=== PATIENT | female | born 1995 | race American Indian/Alaskan Native ===

== ENCOUNTER 2022-02-19 20:38 | Inpatient (IN) | payer OTHER ==
[2022-02-19] MEDS ORDERED: LIDOCAINE (2%) 20 MG/1 ML VIAL 20 ML MDV INFILTRATI ONE (22:25)
[2022-02-19] MEDS ORDERED: BUTORPHANOL 2 MG/1 ML INJ IV PRN (22:25)
[2022-02-19] MEDS ORDERED: PROMETHAZINE 25 MG TAB PO PRN (22:25)
[2022-02-19] MEDS ORDERED: TERBUTALINE 1 MG/1 ML INJ SUB-Q PRN (22:25)
[2022-02-19] MEDS ORDERED: ACETAMINOPHEN 325 MG TAB PO PRN (22:25)
[2022-02-19] MEDS ORDERED: ePHEDrine SULFATE 50 MG/1 ML INJ IV PRN (22:25)
[2022-02-19] MEDS ORDERED: fentaNYL 100 MCG/2 ML INJ IV PRN (22:25)
[2022-02-19] MEDS ORDERED: MINERAL OIL 30 ML ORAL LIQD PO PRN (22:25)
[2022-02-19] MEDS ORDERED: LACTATED RINGERS 1,000 ML IV SCH (22:30)
[2022-02-19 23:15] LABS: Hematocrit 35.1 % (30.3-42.9); Hemoglobin 12.1 gm/dl (10.1-14.3); Mean Corpuscular HGB Conc 35 % (30-34); Mean Corpuscular Volume 89 fl (79-97); Platelet Count 104 K/mm3 (140-440); Red Blood Count 3.96 M/mm3 (3.65-5.03); Red Cell Distribution Width 14.9 % (13.2-15.2)
--- NOTE | 2022-02-19 23:56 | History and Physical Report ---
History of Present Illness Date of examination: 02/19/22 Date of admission: 02/19/22 20:38 History of present illness: This patient is being admitted for induction for intrauterine growth restri ction. EDC Confirmation: 02/25/2022 by ultrasound Past History : 3 Term Births: 2 Premature Births: 0 Living Children: 2 Para: 2 Mult. Births: 0 Prev : 0 Aborta: 0 Elect. Ab: 0 Spont. Ab: 0 Ectopics: 0 # 1 Weeks Gestation: 37 Delivery type: Infant Sex: Female # 2 Weeks Gestation: 40 Delivery type: Infant Sex: Male Past Medical History: Negative Past Medical History Past Surgical History: D&C: Risk Factors: Smoked Tobacco Use: Never smoker Smokeless Tobacco Use: Never Passive Smoke Exposure: no HIV High Risk Behavior: no Exercise: no Seatbelt Use: 100 % Past Medical History Surgery (Non-roofing superintendent): positive D&C: Abnormal PAP: negative YOVANNY Exposure: negative Infertility: negative Uterine Anomaly: negative Uterine Surgery (not C/S): negative Other Gynecologic Problems: negative Social Hx: Patient is single Smoking History: Patient has never smoked. +MJ Infection History HIV Risk Eval: no Varicella/Chicken Pox Status: NO Genetic History Congenital Heart Defect: Mom: no Dad: no Soledad Disease: Mom: no Dad: no Thalassemia Mom: no Dad: no Neural Tube Defect Mom: no Dad: no Down's Syndrome Mom: no Dad: no Willem-Sachs Mom: no Dad: no Sickle Cell Disease/Trait Mom: no Dad: no Hemophilia Mom: no Dad: no Muscular Dystrophy Mom: no Dad: no Cystic Fibrosis Mom: no Dad: no Louisa Chorea Mom: no Dad: no Mental Retardation Mom: no Dad: no Fragile X Mom: no Dad: no Other Genetic/Chromosomal Disorder Mom: no Dad: no Child w/other defect Mom: no Dad: no Enviromental Exposures Xray Exposure: no Medication, drug, or alcohol use since LMP: no Chemical/Other Exposure: no Exposure to Cat Liter: no Hx of Parvovirus (Fifth Disease): no Occupational Exposure to Children: none Current Allergies (reviewed today): No known allergies Past History Past Medical History: other (See HPI) Past Surgical History: D&C, other (See HPI) DENTAL RECEPTIONIST History: other (See HPI) Family/Genetic History: other (See HPI) Social history: full code, other (See HPI) - Obstetrical History Expected Date of Delivery: 02/25/22 Actual Gestation: 39 Week(s) 2 Day(s) : 3 Para: 2 Hx # Term Pregnancies: 2 Number of Pregnancies: 0 Spontaneous Abortions: 0 Induced : 0 Number of Living Children: 2 Medications and Allergies Allergies Allergy/AdvReac Type Severity Reaction Status Date / Time No Known Allergies Allergy Verified 02/19/22 22:30 Active Meds: Active Medications Acetaminophen (Acetaminophen 325 Mg Tab) 650 mg PO Q4H PRN PRN Reason: Pain, Mild (1-3) Butorphanol Tartrate (Butorphanol 2 Mg/1 Ml Inj) 1 mg IV Q2H PRN PRN Reason: Pain, Moderate (4-6) Ephedrine Sulfate (Ephedrine Sulfate 50 Mg/1 Ml Inj) 10 mg IV Q2M PRN PRN Reason: Hypotension Fentanyl (Fentanyl 100 Mcg/2 Ml Inj) 100 mcg IV Q2H PRN PRN Reason: Pain , Severe (7-10) Lactated Ringer's (Lactated Ringers) 1,000 mls @ 125 mls/hr IV DIRECT JAYESH Mineral Oil (Mineral Oil 30 Ml Oral Liqd) 30 ml PO QHS PRN PRN Reason: Constipation Promethazine HCl (Promethazine 25 Mg Tab) 25 mg PO Q6H PRN PRN Reason: Nausea And Vomiting Terbutaline Sulfate (Terbutaline 1 Mg/1 Ml Inj) 0.25 mg SUB-Q ONCE PRN PRN Reason: Hyperstimulation/Hypertonicity Review of Systems All systems: negative - Vital Signs Vital signs: Vital Signs Temp Pulse Resp BP Pulse Ox 98.1 F 86 16 118/56 99 02/19/22 22:01 02/19/22 22:01 02/19/22 22:01 02/19/22 22:01 02/19/22 22:01 Temp Pulse Resp BP Pulse Ox 98.1 F 72 16 118/56 98 02/19/22 22:01 02/19/22 23:46 02/19/22 22:01 02/19/22 22:01 02/19/22 23:46 - Physical Exam Breasts: Positive: deferred Cardiovascular: Regular rate Lungs: Positive: Normal air movement Abdomen: Positive: normal appearance Genitourinary (Female): Positive: normal external genitalia Cervix: Positive: other (Per RN) - Obstetrical FHR: auscultation normal Uterine Contraction Monitor Mode: External Uterine Contraction Pattern: Absent Uterine Tone Measurement Phase: Resting Results Result Diagrams: 02/19/22 22:10 Abnormal lab results 02/19/22 Range/Units 22:10 MCHC 35 H (30-34) % Plt Count 104 L (140-440) K/mm3 All other labs normal. Assessment and Plan - Patient Problems (1) Intrauterine growth restriction (IUGR) affecting care of mother, third trimester, single gestation Current Visit: Yes Status: Acute Plan to address problem: Patient been admitted for serial labor induction. Cervidil will be placed this evening with start Pitocin on tomorrow. We will monitor mother and fetus closely.
[2022-02-20] MEDS ORDERED: DINOPROSTONE 10 MG VAG SUPP VG ONE (00:02)
--- NOTE | 2022-02-20 08:35 | Progress Note ---
Assessment and Plan cervidil removed, SVE 4.5/80/0, cephalic. Plan for epidural and pitocin. anticipate . Pt agrees with plan of care. - Patient Problems (1) 39 weeks gestation of Current Visit: Yes Status: Acute (2) Intrauterine growth restriction (IUGR) affecting care of mother, third trimester, single gestation Current Visit: Yes Status: Acute Subjective - Subjective Date of service: 02/20/22 Principal diagnosis: IUP @ 39+1; IOL for IUGR Patient reports: movement normal, contractions, no loss of fluid, no vaginal bleeding Objective - Vital Signs Vital Signs: Vital Signs - 12hr 02/19/22 02/19/22 02/19/22 22:01 22:06 22:11 Temperature 98.1 F Pulse Rate 76 84 77 Respiratory 16 Rate Blood Pressure 118/56 Blood Pressure 118/56 [Left] O2 Sat by Pulse 99 99 99 Oximetry O2 Sat by Pulse Oximetry [ Bilateral] 02/19/22 02/19/22 02/19/22 22:16 22:21 22:26 Temperature Pulse Rate 80 79 82 Respiratory Rate Blood Pressure Blood Pressure [Left] O2 Sat by Pulse 99 99 98 Oximetry O2 Sat by Pulse Oximetry [ Bilateral] 02/19/22 02/19/22 02/19/22 22:31 22:36 22:41 Temperature Pulse Rate 75 79 82 Respiratory Rate Blood Pressure Blood Pressure [Left] O2 Sat by Pulse 98 99 99 Oximetry O2 Sat by Pulse Oximetry [ Bilateral] 02/19/22 02/19/22 02/19/22 22:46 22:51 22:56 Temperature Pulse Rate 78 78 75 Respiratory Rate Blood Pressure Blood Pressure [Left] O2 Sat by Pulse 97 99 99 Oximetry O2 Sat by Pulse Oximetry [ Bilateral] 02/19/22 02/19/22 02/19/22 23:01 23:06 23:11 Temperature Pulse Rate 70 73 74 Respiratory Rate Blood Pressure Blood Pressure [Left] O2 Sat by Pulse 98 98 98 Oximetry O2 Sat by Pulse Oximetry [ Bilateral] 02/19/22 02/19/22 02/19/22 23:16 23:21 23:26 Temperature Pulse Rate 68 69 68 Respiratory Rate Blood Pressure Blood Pressure [Left] O2 Sat by Pulse 98 98 97 Oximetry O2 Sat by Pulse Oximetry [ Bilateral] 02/19/22 02/19/22 02/19/22 23:31 23:36 23:41 Temperature Pulse Rate 78 68 71 Respiratory Rate Blood Pressure Blood Pressure [Left] O2 Sat by Pulse 98 98 97 Oximetry O2 Sat by Pulse Oximetry [ Bilateral] 02/19/22 02/19/22 02/19/22 23:46 23:51 23:56 Temperature Pulse Rate 72 84 81 Respiratory Rate Blood Pressure Blood Pressure [Left] O2 Sat by Pulse 98 98 98 Oximetry O2 Sat by Pulse Oximetry [ Bilateral] 02/20/22 02/20/22 02/20/22 00:01 00:06 00:11 Temperature Pulse Rate 71 66 66 Respiratory Rate Blood Pressure Blood Pressure [Left] O2 Sat by Pulse 98 98 96 Oximetry O2 Sat by Pulse Oximetry [ Bilateral] 02/20/22 02/20/22 02/20/22 00:16 00:30 00:35 Temperature Pulse Rate 70 68 86 Respiratory Rate Blood Pressure Blood Pressure [Left] O2 Sat by Pulse 97 92 99 Oximetry O2 Sat by Pulse Oximetry [ Bilateral] 02/20/22 02/20/22 02/20/22 00:40 00:45 00:50 Temperature Pulse Rate 67 67 72 Respiratory Rate Blood Pressure Blood Pressure [Left] O2 Sat by Pulse 98 97 97 Oximetry O2 Sat by Pulse Oximetry [ Bilateral] 02/20/22 02/20/22 02/20/22 00:55 01:00 01:05 Temperature Pulse Rate 77 72 74 Respiratory Rate Blood Pressure Blood Pressure [Left] O2 Sat by Pulse 97 97 97 Oximetry O2 Sat by Pulse Oximetry [ Bilateral] 02/20/22 02/20/22 02/20/22 01:10 01:15 01:20 Temperature Pulse Rate 74 70 77 Respiratory Rate Blood Pressure Blood Pressure [Left] O2 Sat by Pulse 97 97 98 Oximetry O2 Sat by Pulse Oximetry [ Bilateral] 02/20/22 02/20/22 02/20/22 01:25 01:30 01:35 Temperature Pulse Rate 94 H 82 80 Respiratory Rate Blood Pressure Blood Pressure [Left] O2 Sat by Pulse 99 98 100 Oximetry O2 Sat by Pulse Oximetry [ Bilateral] 02/20/22 02/20/22 02/20/22 01:40 01:45 01:50 Temperature Pulse Rate 76 75 78 Respiratory Rate Blood Pressure Blood Pressure [Left] O2 Sat by Pulse 100 99 97 Oximetry O2 Sat by Pulse Oximetry [ Bilateral] 02/20/22 02/20/22 02/20/22 01:55 02:00 02:05 Temperature Pulse Rate 70 74 79 Respiratory Rate Blood Pressure Blood Pressure [Left] O2 Sat by Pulse 97 97 97 Oximetry O2 Sat by Pulse Oximetry [ Bilateral] 02/20/22 02/20/22 02/20/22 02:10 02:15 02:20 Temperature Pulse Rate 76 84 87 Respiratory Rate Blood Pressure Blood Pressure [Left] O2 Sat by Pulse 97 97 97 Oximetry O2 Sat by Pulse Oximetry [ Bilateral] 02/20/22 02/20/22 02/20/22 02:25 02:30 02:35 Temperature Pulse Rate 87 78 94 H Respiratory Rate Blood Pressure Blood Pressure [Left] O2 Sat by Pulse 97 98 97 Oximetry O2 Sat by Pulse Oximetry [ Bilateral] 02/20/22 02/20/22 02/20/22 02:40 02:45 02:48 Temperature 98.3 F Pulse Rate 80 86 Respiratory Rate Blood Pressure Blood Pressure [Left] O2 Sat by Pulse 98 97 Oximetry O2 Sat by Pulse Oximetry [ Bilateral] 02/20/22 02/20/22 02/20/22 02:50 02:55 03:00 Temperature Pulse Rate 83 85 81 Respiratory Rate Blood Pressure Blood Pressure [Left] O2 Sat by Pulse 99 98 98 Oximetry O2 Sat by Pulse Oximetry [ Bilateral] 02/20/22 02/20/22 02/20/22 03:05 03:10 03:15 Temperature Pulse Rate 82 69 75 Respiratory Rate Blood Pressure Blood Pressure [Left] O2 Sat by Pulse 98 98 97 Oximetry O2 Sat by Pulse Oximetry [ Bilateral] 02/20/22 02/20/22 02/20/22 03:20 03:25 03:30 Temperature Pulse Rate 77 90 81 Respiratory Rate Blood Pressure Blood Pressure [Left] O2 Sat by Pulse 97 98 97 Oximetry O2 Sat by Pulse Oximetry [ Bilateral] 02/20/22 02/20/22 02/20/22 03:35 03:40 03:45 Temperature Pulse Rate 75 79 92 H Respiratory Rate Blood Pressure Blood Pressure [Left] O2 Sat by Pulse 98 98 98 Oximetry O2 Sat by Pulse Oximetry [ Bilateral] 02/20/22 02/20/22 02/20/22 03:50 03:55 04:00 Temperature Pulse Rate 83 82 91 H Respiratory Rate Blood Pressure Blood Pressure [Left] O2 Sat by Pulse 97 97 98 Oximetry O2 Sat by Pulse Oximetry [ Bilateral] 02/20/22 02/20/22 02/20/22 04:05 04:10 04:15 Temperature Pulse Rate 81 77 69 Respiratory Rate Blood Pressure Blood Pressure [Left] O2 Sat by Pulse 98 98 99 Oximetry O2 Sat by Pulse Oximetry [ Bilateral] 02/20/22 02/20/22 02/20/22 04:20 04:25 04:30 Temperature Pulse Rate 79 84 70 Respiratory Rate Blood Pressure Blood Pressure [Left] O2 Sat by Pulse 99 99 98 Oximetry O2 Sat by Pulse Oximetry [ Bilateral] 02/20/22 02/20/22 02/20/22 04:35 04:46 04:51 Temperature Pulse Rate 79 70 74 Respiratory Rate Blood Pressure Blood Pressure [Left] O2 Sat by Pulse 99 99 99 Oximetry O2 Sat by Pulse Oximetry [ Bilateral] 02/20/22 02/20/22 02/20/22 04:56 05:01 05:06 Temperature Pulse Rate 69 62 57 L Respiratory Rate Blood Pressure Blood Pressure [Left] O2 Sat by Pulse 99 98 98 Oximetry O2 Sat by Pulse Oximetry [ Bilateral] 02/20/22 02/20/22 02/20/22 05:11 05:16 05:21 Temperature Pulse Rate 60 58 L 60 Respiratory Rate Blood Pressure Blood Pressure [Left] O2 Sat by Pulse 98 98 98 Oximetry O2 Sat by Pulse Oximetry [ Bilateral] 02/20/22 02/20/22 02/20/22 05:26 05:31 05:36 Temperature Pulse Rate 71 76 67 Respiratory Rate Blood Pressure Blood Pressure [Left] O2 Sat by Pulse 98 98 98 Oximetry O2 Sat by Pulse Oximetry [ Bilateral] 02/20/22 02/20/22 02/20/22 05:41 05:46 05:51 Temperature Pulse Rate 85 77 67 Respiratory Rate Blood Pressure Blood Pressure [Left] O2 Sat by Pulse 99 99 97 Oximetry O2 Sat by Pulse Oximetry [ Bilateral] 02/20/22 02/20/22 02/20/22 05:56 06:01 06:06 Temperature Pulse Rate 73 64 75 Respiratory Rate Blood Pressure Blood Pressure [Left] O2 Sat by Pulse 97 98 98 Oximetry O2 Sat by Pulse Oximetry [ Bilateral] 02/20/22 02/20/22 02/20/22 06:11 06:16 06:21 Temperature Pulse Rate 69 64 77 Respiratory Rate Blood Pressure Blood Pressure [Left] O2 Sat by Pulse 100 100 100 Oximetry O2 Sat by Pulse Oximetry [ Bilateral] 02/20/22 02/20/22 02/20/22 06:26 06:31 06:36 Temperature Pulse Rate 76 76 70 Respiratory Rate Blood Pressure Blood Pressure [Left] O2 Sat by Pulse 99 100 100 Oximetry O2 Sat by Pulse Oximetry [ Bilateral] 02/20/22 02/20/22 02/20/22 06:41 06:46 06:51 Temperature Pulse Rate 67 69 68 Respiratory Rate Blood Pressure Blood Pressure [Left] O2 Sat by Pulse 100 100 100 Oximetry O2 Sat by Pulse Oximetry [ Bilateral] 02/20/22 02/20/22 02/20/22 07:35 07:39 07:41 Temperature 98.7 F Pulse Rate 68 71 Respiratory 16 Rate Blood Pressure 119/76 Blood Pressure 119/76 [Left] O2 Sat by Pulse 100 99 Oximetry O2 Sat by Pulse 100 Oximetry [ Bilateral] 02/20/22 02/20/22 02/20/22 07:44 07:49 07:54 Temperature Pulse Rate 76 68 75 Respiratory Rate Blood Pressure Blood Pressure [Left] O2 Sat by Pulse 98 98 98 Oximetry O2 Sat by Pulse Oximetry [ Bilateral] 02/20/22 02/20/22 02/20/22 07:59 08:04 08:05 Temperature Pulse Rate 79 78 91 H Respiratory Rate Blood Pressure Blood Pressure [Left] O2 Sat by Pulse 99 99 93 Oximetry O2 Sat by Pulse Oximetry [ Bilateral] 02/20/22 02/20/22 02/20/22 08:09 08:20 08:25 Temperature Pulse Rate 76 85 92 H Respiratory Rate Blood Pressure Blood Pressure [Left] O2 Sat by Pulse 99 100 99 Oximetry O2 Sat by Pulse Oximetry [ Bilateral] 02/20/22 08:30 Temperature Pulse Rate 81 Respiratory Rate Blood Pressure Blood Pressure [Left] O2 Sat by Pulse 100 Oximetry O2 Sat by Pulse Oximetry [ Bilateral] - Exam Breasts: normal Cardiovascular: Regular rate Lungs: Normal air movement Abdomen: Present: normal appearance, soft Vulva: both: normal Uterus: Present: normal, fundal height above umbilicus FHR: category 2 Uterine Contraction Monitor Mode: External Cervical Dilatation: 4.5 Cervical Effacement Percentage: 80 station: 0 Uterine Contraction Pattern: Regular Uterine Tone Measurement Phase: Contraction Uterine Contraction Intensity: Moderate Extremities: normal Deep Tendon Reflex Grade: Normal +2 - Labs Labs: Abnormal Labs 02/19/22 22:10 MCHC 35 H Plt Count 104 L Laboratory Results - last 24 hr 02/19/22 02/19/22 02/19/22 22:10 22:10 22:10 WBC 4.6 RBC 3.96 Hgb 12.1 Hct 35.1 MCV 89 MCH 31 MCHC 35 H RDW 14.9 Plt Count 104 L Syphilis IgG/IgM Ab Nonreactive Blood Type B POSITIVE Antibody Screen Negative
--- NOTE | 2022-02-20 10:04 | Anesthesia Consultation ---
Anesthesia Consult and Med Hx Date of service: 02/20/22 - Airway Anesthetic Teeth Evaluation: Good ROM Head & Neck: Adequate Mental/Hyoid Distance: Adequate Mallampati Class: Class II Intubation Access Assessment: Probably Good - Pulmonary Exam CTA: Yes - Cardiac Exam Cardiac Exam: RRR - Pre-Operative Health Status ASA Pre-Surgery Classification: ASA2 Proposed Anesthetic Plan: Epidural - Pulmonary Hx Smoking: No Hx Asthma: No Hx Respiratory Symptoms: No SOB: No COPD: No Home Oxygen Therapy: No Hx Pneumonia: No Hx Sleep Apnea: No - Cardiovascular System Hx Hypertension: No Hx Coronary Artery Disease: No Hx Heart Attack/AMI: No Hx Angina: No Hx Percutaneous Transluminal Coronary Angioplasty (PTCA): No Hx Cardia Arrhythmia: No Hx Pacemaker: No Hx Internal Defibrillator: No Hx Valvular Heart Disease: No Hx Heart Murmur: No Hx Peripheral Vascular Disease: No - Central Nervous System Hx Neuromuscular Disorder: No Hx Seizures: No CVA: No Hx Back Pain: No Hx Psychiatric Problems: No - Gastrointestinal Hx Ulcer: No Hx Gastroesophageal Reflux Disease: No - Endocrine Hx Renal Disease: No Hx End Stage Renal Disease: No Hx Cirrhosis: No Hx Liver Disease: No Hx Insulin Dependent Diabetes: No Hx Non-Insulin Dependent Diabetes: No Hx Thyroid Disease: No Hx Hypothyroidism: No Hx Hyperthyroidism: No - Hematic Hx Anemia: No Hx Sickle Cell Disease: No - Other Systems Hx Alcohol Use: No Hx Substance Use: No Hx Cancer: No Hx Obesity: No
--- NOTE | 2022-02-20 10:04 | Anesthesia Day of Surgery ---
Anesthesia Day of Surgery - Day of Surgery Patient Examined: Yes Patient H&P Reviewed: Yes Patient is NPO: Yes Beta Blockers: No Cardiac Clearance: No Pulmonary Clearance: No Boaz's Test: N/A
--- NOTE | 2022-02-20 10:05 | Progress Note ---
Labor Epidural - Labor Epidural Start Time: 09:32 Stop Time: 09:48 Performed by:: LYNDA GALE Procedure: Epidural Requested for Labor Pain. H&P and PT Chart reviewed and consent obtained. Time out performed and the procedure was explained, all questions answered. Patient was placed in a sitting position with monitors applied. The PTs back was prepped and draped in usual sterile fashion. The Skin was localized with 3 mL of 1% lidocaine at L3-L4. A 17-gauge Touhy epidural needle was advanced to BABATUNDE with saline at 7 cm and no blood/CSF was noted via epidural needle. Epidural catheter was advanced to 12 cm. There was negative aspiration for blood and CSF in the catheter and negative response to a test dose of 3 ml 1.5% lidocaine w/ Epi and a sterile dressing was applied Patient tolerated the procedure well and there were no immediate complications noted.
[2022-02-20] MEDS: OXYTOCIN DRIP 30 UNITS/500 ML BAG IV SCH ×2 (10:13→12:00)
[2022-02-20] MEDS ORDERED: NALOXONE 0.4 MG/1 ML INJ IV PRN (10:30)
[2022-02-20] MEDS ORDERED: fentaNYL-BUPIV 2 MCG/ML-0.125% 200 MCG/100 ML BAG EPIDURAL SCH (10:30)
[2022-02-20] MEDS ORDERED: ePHEDrine SULFATE 50 MG/1 ML INJ IV PRN (10:30)
--- NOTE | 2022-02-20 12:47 | Event Note ---
Date: 02/20/22 Pt comfortable with epidural, AROM with moderate amount of clear fluid, 5- 6cm/80/0. IUPC inserted. anticipate
--- NOTE | 2022-02-20 13:59 | Procedure Note ---
OB Delivery Note - Delivery Date of Delivery: 02/20/22 Grout Machine Tender: LUPIS ARENAS (BEN [place]) Estimated blood loss: 100cc - Vaginal Delivery presentation: vertex Delivery position: OA (LAUREN) Intrapartum events: other(please specify) (IOL IUGR) Delivery induction: cervidil Delivery augmentation: rupture of membranes, pitocin Delivery monitor: external FHT, internal uterine Route of delivery: Delivery placenta: spontaneous Delivery cord: nuchal cord, 3 umbilical vessels Episiotomy: none Delivery laceration: none Anesthesia: epidural Delivery comments: live female delivered over intact perineum. Baby placed skin to skin with mother, dried and stimulated. Cord clamped and cut upon pulse cessation. Placenta delivered intact and spontaneously. apgars 8/9, QBL 100. All counts correct x2. Mother and baby stable upon leaving room. - Infant A at 1 minute: 8 at 5 minutes: 9 Infant Gender: Female (6#11oz)
[2022-02-20] MEDS ORDERED: miSOPROStol 200 MCG TAB ONE (14:02)
[2022-02-20] MEDS ORDERED: PROMETHAZINE 25 MG TAB PO PRN (18:29)
[2022-02-20] MEDS ORDERED: BENZOCAINE/MENTHOL 20/0.5% TOP SPRAY 56 GM TP PRN (18:29)
[2022-02-20] MEDS ORDERED: LANOLIN/ZINC/DIMETHICONE (LANSINOH) 7 GM TP PRN (18:29)
[2022-02-20] MEDS ORDERED: ACETAMINOPHEN 325 MG TAB PO PRN (18:29)
[2022-02-20] MEDS ORDERED: ONDANSETRON 4 MG/2 ML INJ IV PRN (18:29)
[2022-02-20] MEDS ORDERED: diphenhydrAMINE 25 MG CAP PO PRN (18:29)
[2022-02-20] MEDS ORDERED: MAGNESIUM HYDROXIDE (MOM) ORAL LIQD UDC PO PRN (18:29)
[2022-02-20] MEDS ORDERED: WITCH HAZEL/ GLYCERIN PAD TP PRN (18:29)
[2022-02-20] MEDS: FERROUS SULFATE 325 MG TAB PO SCH (21:12)
[2022-02-20] MEDS: DOCUSATE SODIUM 100 MG CAP PO SCH (21:12)
[2022-02-20] MEDS: IBUPROFEN 800 MG TAB PO SCH (21:12)
[2022-02-21] MEDS: IBUPROFEN 800 MG TAB PO SCH ×2 (04:26→12:51)
[2022-02-21 08:27] LABS: Hematocrit 31.4 % (30.3-42.9); Hemoglobin 10.6 gm/dl (10.1-14.3)
--- NOTE | 2022-02-21 08:52 | Progress Note ---
Assessment and Plan A; 26 y.o. s/p at term. - Patient Problems (1) (normal spontaneous vaginal delivery) Current Visit: Yes Status: Acute Plan to address problem: Continue with care. Anticipate discharge home on 02/21. Subjective - Subjective Date of service: 02/21/22 Principal diagnosis: s/p Interval history: Discussed with patient plan for today. Pt states that she is not ready to go home yet. Pt has a strong desire for BTL for BC. We discussed that she will need to sign consents. Pt expressed understanding. Patient reports: appetite normal, voiding normally, pain well controlled, ambulating normally : doing well Objective - Vital Signs Latest vital signs: Vital Signs Temp Pulse Resp BP BP Pulse Ox Pulse Ox 02/21/22 08:21 97.9 F 69 18 110/61 98 02/21/22 04:26 20 02/21/22 00:07 98.0 F 77 18 111/70 95 02/20/22 21:12 20 02/20/22 19:51 98.0 F 18 102/65 02/20/22 19:50 88 02/20/22 19:30 99 02/20/22 17:30 98.0 F 71 18 116/66 100 100 02/20/22 16:39 67 97/55 02/20/22 16:24 69 101/59 02/20/22 16:09 65 120/60 02/20/22 15:54 65 119/57 02/20/22 15:39 65 121/59 02/20/22 15:24 64 108/64 02/20/22 14:54 162 H 91/52 02/20/22 14:39 63 100/60 02/20/22 13:36 82 98 02/20/22 13:31 59 L 99 02/20/22 13:26 54 L 99 02/20/22 13:21 57 L 99 02/20/22 13:16 58 L 99 02/20/22 13:11 65 99 02/20/22 13:06 69 97 02/20/22 13:01 60 99 02/20/22 12:56 74 98 02/20/22 12:51 70 98 02/20/22 12:46 61 100 02/20/22 12:41 82 99 02/20/22 12:38 77 107/68 90 02/20/22 12:36 71 99 02/20/22 12:31 67 99 02/20/22 12:26 68 99 02/20/22 12:21 67 100 02/20/22 12:16 78 100 02/20/22 12:11 69 100 02/20/22 12:06 62 100 02/20/22 12:01 68 98 02/20/22 11:56 58 L 100 02/20/22 11:51 68 100 02/20/22 11:46 60 99 02/20/22 11:41 62 99 02/20/22 11:36 67 99 02/20/22 11:31 54 L 100 02/20/22 11:26 67 98 02/20/22 11:21 78 100 02/20/22 11:16 67 98 02/20/22 11:11 62 98 02/20/22 11:06 60 99 02/20/22 11:01 62 100 02/20/22 10:56 67 99 02/20/22 10:51 63 98 02/20/22 10:46 61 98 02/20/22 10:41 64 99 02/20/22 10:36 60 99 02/20/22 10:31 60 98 02/20/22 10:26 62 98 02/20/22 10:21 72 97 02/20/22 10:16 69 99 02/20/22 10:11 71 99 02/20/22 10:06 94 H 99 02/20/22 10:05 81 112/60 02/20/22 10:01 68 99 02/20/22 09:56 81 100 02/20/22 09:51 72 99 02/20/22 09:49 71 125/72 02/20/22 09:46 72 99 02/20/22 09:43 70 92 02/20/22 09:41 74 100 02/20/22 09:37 85 88 02/20/22 09:35 88 100 02/20/22 09:30 84 99 02/20/22 09:25 91 H 97 02/20/22 09:20 64 100 02/20/22 09:15 72 100 02/20/22 09:10 69 100 02/20/22 09:05 76 99 02/20/22 09:00 82 100 02/20/22 08:55 77 100 Intake and Output 02/20/22 02/21/22 02/21/22 22:59 06:59 14:59 Intake Total 200 400 120 Output Total 800 800 Balance -600 -400 120 Intake: Oral 120 Intake, Free Water 200 400 Output: Urine 800 800 Void 800 800 Other: Total, Intake Amount 120 Total, Output Amount 800 800 # Voids Void 1 1 1 - Exam Breasts: Present: deferred Cardiovascular: Present: Regular rate Lungs: Present: Normal air movement Abdomen: Present: normal appearance, soft Vulva: both: normal Uterus: Present: normal, other (Light lochia rubra. ) Extremities: Present: normal
[2022-02-21] MEDS ORDERED: PRENATAL VIT27-FE FUMARATE-FOLIC ACID VIT TAB PO SCH (10:00)
[2022-02-21] MEDS: DOCUSATE SODIUM 100 MG CAP PO SCH (12:51)
[2022-02-21] MEDS: FERROUS SULFATE 325 MG TAB PO SCH (12:51)
[2022-02-21] MEDS ORDERED: TETANUS,DIPH,PERTUSS(ACELL) VACCINE 0.5 ML SYRINGE IM ONE (14:05)
--- NOTE | 2022-02-21 16:02 | Post Anesthesia Evaluation ---
- Post Anesthesia Evaluation Patient Participated: Yes Airway Patent: Yes Stable Respiratory Function: Yes Nausea/Vomiting: No Temp > 96.8F: Yes Pain Manageable: Yes Adequeate Hydration: Yes Anesthesia Complications: No Block Receding Appropriately: Yes Patient on Ventilator: No
--- NOTE | 2022-02-21 16:49 | Discharge Summary ---
Providers - Providers Date of Admission: 02/19/22 20:38 Date of discharge: 02/21/22 (Pt has a strong desire to go home. ) Attending physician: CHRISTINE JORDAN 02/20/22 18:29 Consult to Auto Apprentice Mechanic [CONS] Routine Reason For Exam: assistance with , SNS Primary care physician: CHRISTINE OJRDAN Hospitalization Reason for admission: induction of labor Delivery: Episiotomy: none Laceration: none Other procedures: none complications: none Discharge diagnosis: IUP at term delivered Divide baby: female Pertinent studies: Received a call from the RN that patient states that she would like to go home this evening. Hospital course: S: Pt doing well. Ambulating, voiding, and passing flatus okay. BC: BTL. O: VSS. H/H 10.6/31.4. Fundus firm, minimal bleeding noted. A: 26 y.o. s/p . In good condition, . P: Discharge home with instructions. Pt to scheduled a visit in the office in 4 weeks. Condition at discharge: Good Disposition: 01 HOME / SELF CARE / HOMELESS - Discharge Diagnoses (1) (normal spontaneous vaginal delivery) Status: Acute Plan - Provider Discharge Summary Activity: routine, no sex for 6 weeks, no heavy lifting 4 weeks, no strenuous exercise Diet: routine Instructions: routine Additional instructions: [] Smoking cessation referral if applicable(refer to patient education folder for contact #) [] Refer to [facility] Booklet Call your doctor immediately for: * Fever > 100.5 * Heavy vaginal bleeding ( >1 pad per hour) * Severe persistent headache * Shortness of breath * Reddened, hot, painful area to leg or breast * Drainage or odor from incision. * Keep incision clean and dry at all times and follow doctor's instructions regarding bathing/showering - Follow up plan Follow up: CHRISTINE JORDAN MD [Primary Care Provider] - 03/21/22 (- Congratulations on the of your baby girl! - Thank you for allowing us to take care of you! - Please schedule your visit in the office in 4 weeks. - Should you have any questions or concerns after discharge, please do not hesitate to call us at .)
[2022-02-21 20:14] VITALS: BP 122/74
== END 2022-02-21 21:15 | disposition home or self-care (01) | DRG 806 ==
LOC: LD 20:38 → OB 02-20 17:35
PROVIDERS: ADMIT Obstetrics & Gynecology; ATTEND Obstetrics & Gynecology
PROC: 10E0XZZ Delivery of Products of Conception, External Approach (ICD-10-PCS; principal; 2022-02-20)
PROC: 3E0P7VZ Introduction of Hormone into Female Reproductive, Via Natural or Artificial Opening (ICD-10-PCS; 2022-02-20)
PROC: 3E0R3BZ Introduction of Anesthetic Agent into Spinal Canal, Percutaneous Approach (ICD-10-PCS; 2022-02-20)
PROC: 00HU33Z Insertion of Infusion Device into Spinal Canal, Percutaneous Approach (ICD-10-PCS; 2022-02-20)
PROC: 10907ZC Drainage of Amniotic Fluid, Therapeutic from Products of Conception, Via Natural or Artificial Opening (ICD-10-PCS; 2022-02-20)
PROC: 10H07YZ Insertion of Other Device into Products of Conception, Via Natural or Artificial Opening (ICD-10-PCS; 2022-02-20)
PROC: 3E0234Z Introduction of Serum, Toxoid and Vaccine into Muscle, Percutaneous Approach (ICD-10-PCS; 2022-02-21)
DX: O36.5930 Maternal care for other known or suspected poor fetal growth, third trimester, not applicable or unspecified (principal); D62 Acute posthemorrhagic anemia; Z37.0 Single live birth; Z3A.39 39 weeks gestation of pregnancy; O69.81X0 Labor and delivery complicated by cord around neck, without compression, not applicable or unspecified; Z23 Encounter for immunization
CPT/HCPCS: 36415; 59200; 85014; 85018; 85027; 86592; 86850; 86900; 86901; 88307; G0378; J2590; J7120